=== PATIENT | male | born 2000 | race African-American/Black ===

== ENCOUNTER 2023-12-12 14:20 | Emergency (ER) | payer BC ==
[2023-12-12] MEDS: Ibuprofen 400 MG Tab PO ONE (15:21)
[2023-12-12] MEDS: Ondansetron 4 MG Tab.DIS PO ONE (15:22)
[2023-12-12 15:35] LABS: CORONAVIRUS COVID-19 NAA NEGATIVE (NEGATIVE); INFLUENZA A NAA NEGATIVE (NEGATIVE); INFLUENZA B NAA NEGATIVE (NEGATIVE)
== END 2023-12-12 16:01 | disposition home or self-care (01) ==
LOC: MW.ED 14:20
DX: J00 Acute nasopharyngitis [common cold] (principal)
CPT/HCPCS: 0240U; 87651; 99284; A9270; 99283